=== PATIENT | male | born 1985 | race African-American/Black ===

== ENCOUNTER 2019-08-29 14:44 | Emergency (ER) | payer SELFPAY ==
[2019-08-29 14:59] VITALS: BP 121/70; PULSE 102; RESP 20; TEMP 37.6; O2SAT 100
--- NOTE | 2019-08-29 15:17 | ED.GENADULT ---
HPI - General Adult General Chief complaint: Upper Respiratory Infection Stated complaint: fever weak ache Time Seen by Provider: 08/29/19 15:17 Source: patient and RN notes reviewed History of Present Illness HPI narrative: Patient is a 34-year-old male that presents the urgent care with complaints of fever, fatigue, body aches. Patient states that he is recently been treated for an abscess in the groin region. Patient was originally placed on clindamycin and then Bactrim. Patient states has been taking the medication as prescribed. States that within the last 24 hours he developed the above symptoms. Patient has not taken anything for his symptoms with the exception of a couple doses of TheraFlu . No other acute complaints. No acute distress noted. Patient had a plan of care. Related Data Home Medications Medication Instructions Recorded Confirmed albuterol sulfate 2 puff INHALATION QID PRN 08/29/19 08/29/19 Allergies Allergy/AdvReac Type Severity Reaction Status Date / Time Penicillins Allergy Severe Seizure Verified 08/29/19 15:23 Review of Systems Review of Systems: Narrative: CONSTITUTIONAL: Reports a fever, chills, sweats EYES: Denies visual changes, redness, or discharge. ENT: Reports of congestion CARDIOVASCULAR: Denies chest pain, palpitations, or edema. RESPIRATORY: Denies cough or dyspnea. GASTROINTESTINAL: Denies abdominal pain, nausea, vomiting, or diarrhea. GENITOURINARY: Denies dysuria or hematuria. SKIN: Denies rash or itching. MUSCULOSKELETAL: Denies back pain, joint pain; reports of body aches NEUROLOGIC: Denies headache, numbness, or weakness. All other systems reviewed are negative, except as documented in HPI. [facility] Past Medical History Medical History (Updated 08/29/19 @ 15:34 by TAY Sims) COPD (chronic obstructive pulmonary disease) Cyst Pleurisy Surgical History Surgical History (Updated 07/28/19 @ 13:56 by Thomas Doss) No significant past surgical history Social History Social History (Updated 07/28/19 @ 13:56 by Thomas Doss) Smoking status: Current some day smoker Tobacco type: cigars Gender identity (if verbalized by the patient): Male Comments At the time of my signature, I reviewed and agree with the nursing past medical, surgical, social, and family history. There is no relevant family history pertinent to the patient complaint. Exam Narrative: Exam Narrative: GENERAL: This is a well-nourished, well-developed patient, appears anxious HEAD: normocephalic, atraumatic. EYES: PERRL. Sclera clear/white. Vision is grossly intact. EARS: External ears normal, auditory canals clear and without drainage, TMs normal without perforation. Hearing grossly intact. NOSE: External nose normal with no obvious nasal discharge, nares without redness, clear rhinorrhea. THROAT: Mucous membranes moist, posterior pharynx clear. Moderate postnasal drainage NECK: Neck supple, non-tender without lymphadenopathy, masses or thyromegaly. CARDIOVASCULAR: Regular rate and rhythm without murmurs, gallops, or rubs. RESPIRATORY: Clear to auscultation. Breath sounds equal bilaterally. No wheezes, rales, or rhonchi. SKIN: warm, intact with no suspicious lesions or rash, good texture and turgor. NEURO: awake, alert, and oriented to person, place and time. There were no obvious focal neurologic abnormalities. EXTREMITIES: No clubbing, cyanosis, or edema. Course Vital Signs Vital signs: Vital Signs Temperature 99.6 F 08/29/19 14:59 Pulse Rate 102 H 08/29/19 14:59 Respiratory Rate 08/29/19 14:59 Blood Pressure 121/70 08/29/19 14:59 Pulse Oximetry 100 08/29/19 14:59 Temperature 99.6 F 08/29/19 14:59 Pulse Rate 102 H 08/29/19 14:59 Respiratory Rate 08/29/19 14:59 Blood Pressure 121/70 08/29/19 14:59 Pulse Oximetry 100 08/29/19 14:59 Reviewed Medical Decision Making MDM Narrative Medical decision making narrative: Reviewed lab r
== END 2019-08-29 15:40 | disposition home or self-care (01) ==
PROVIDERS: Emergency Provider Nurse Practitioner Family
DX: J10.1 Influenza due to other identified influenza virus with other respiratory manifestations (principal); J44.9 Chronic obstructive pulmonary disease, unspecified; F17.290 Nicotine dependence, other tobacco product, uncomplicated
CPT/HCPCS: 87804; 99213; G0463

== ENCOUNTER 2020-03-04 11:21 | Emergency (ER) | payer OTHER, SELFPAY ==
--- NOTE | ~2020-03-04 | XR_ITS ---
XR chest 2V DATE: 03/04/2020 12:30 INDICATION: Chest tightness for 2 weeks. Chest pain with inspiration. Numbness of left arm and leg. TECHNIQUE: PA and lateral views COMPARISON: 10/30/2018 PA and lateral chest FINDINGS: Heart size is normal. No hilar or mediastinal enlargement. Bilateral hyperinflation. No pulmonary infiltrate or consolidation, pleural effusion or pulmonary vas cular congestion or pneumothorax. IMPRESSION: Bilateral hyperinflation; no active cardiopulmonary disease Reviewed, dictated and finalized at location [facility].
--- NOTE | ~2020-03-04 | US_ITS ---
US right upper quadrant DATE: 03/04/2020 13:06 INDICATION: Right upper quadrant abdominal pain TECHNIQUE: Real-time imaging and Doppler analysis COMPARISON: None FINDINGS: There is an approximately 9 mm mobile gallstone with shadowing. No gallbladder wall thicke reji or abnormal pericholecystic fluid collection. No hepatic or pancreatic space occupying mass les ion is detected. Normal hepatopedal portal venous flow direction. IMPRESSION: Cholelithiasis Reviewed, dictated and finalized at [facility]. Reviewed, dictated and finalized at location [facility]. IMPRESSION: Cholelithiasis
[2020-03-04 11:23] VITALS: BP 130/63; PULSE 60; RESP 16; TEMP 36.7; O2SAT 100
--- NOTE | 2020-03-04 11:29 | ECG_ITS ---
Measurements Intervals [place] Rate: 56 P: 55 DC: 131 QRS: 82 QRSD: 91 T: 64 QT: 388 QTc: 376 Interpretive Statements SINUS BRADYCARDIA ST ELEVATION IN DIFFUSE LEADS- PROBABLY EARLY REPOLARIZATION BORDERLINE ECG Electronically Signed On 03-04-2020 11:41:00 CDT by Manuel Oscar D.O.
[2020-03-04 12:01] LABS: Basophils Percent Auto 0.8 % (0.2-1.2); Eosinophils Absolute Auto 0.1 K/mm3 (0-0.3); Eosinophils Percent Auto 1.2 % (0-4.4); Hematocrit 41.6 % (42.0-52.0); Hemoglobin 13.1 g/dL (14.0-18.0); Immature Granulocyte Absolute 0.02 K/mm3 (0.00-0.031); Immature Granulocyte Percent A 0.4 % (0-0.5); Lymphocytes Absolute Auto 1.65 K/mm3 (0.9-3.2); Lymphocytes Percent Auto 32.9 % (18.3-44.2); Mean Corpuscular HGB Conc 31.5 g/dl (32-36); Mean Corpuscular Hemoglobin 23.5 pg (26-34); Mean Corpuscular Volume 74.7 fl (80-100); Mean Platelet Volume 9.8 fl (7.4-10.4); Monocytes Absolute Auto 0.5 K/mm3 (0.1-0.6); Neutrophils Absolute Auto 2.7 K/mm3 (1.3-6.7); Neutrophils Percent Auto 54.7 % (45.5-73.1); Platelet Count Result 229 k/mm3 (150-375); Red Blood Count 5.57 M/mm3 (4.6-6.20); Red Cell Distribution Width 13.5 % (11.5-14.5)
[2020-03-04 12:09] LABS: Prothrombin Time 13.1 Seconds (11.1-14.7)
[2020-03-04 12:10] LABS: Partial Thromboplastin Time 29.4 SECONDS (22.3-36.8)
[2020-03-04 12:16] LABS: Anion Gap 9 mmol/L (8-16); Blood Urea Nitrogen 15 mg/dL (9-20); Calcium 9.3 mg/dL (8.4-10.2); Carbon Dioxide 25 mmol/L (22-30); Chloride 105 mmol/L (98-107); Estimated CRCL calculation 103 ml/min; Estimated Glomerular Filt Rate > 60; Glucose 91 mg/dL (75-110); Potassium 3.5 mmol/L (3.4-5.0); Sodium 139 mmol/L (137-145)
[2020-03-04 12:28] LABS: Troponin I < 0.012 ng/mL (0.000-0.034)
[2020-03-04 13:01] LABS: Alanine Aminotransferase 16 U/L (4-50); Albumin Level 4.6 g/dL (3.5-5.1); Alkaline Phosphatase 55 U/L (38-126); Aspartate Amino Transferase 26 U/L (17-59); Bilirubin,Total 0.8 mg/dL (0.2-1.3); Lipase 56 U/L (23-300)
[2020-03-04 13:14] LABS: D Dimer 0.27 ug/mL (<0.48)
--- NOTE | 2020-03-04 13:17 | ED.GENADULT ---
HPI - General Adult General Chief complaint: Chest Pain Stated complaint: Chest Tightness Time Seen by Provider: 03/04/20 12:04 History of Present Illness HPI narrative: Patient is a 34-year-old male who presents ER with right-sided chest pain. Ongoing for 2 to 3 weeks. Reports he has the pain every 10 minutes since over the lowest rib of the right anterior chest wall. No known trauma. No cough or fevers or chills. He has no exertional dyspnea or wheezing. Reports he has been seen at another hospital without any diagnosis. Cannot give detailed information of the work-up he received and often. No modification with eating or drinking. Reports mild discomfort in his right upper abdomen. Reports that if he takes ibuprofen the pain goes away only temporarily. No lower extremity swelling or long distance travel. Related Data Home Medications Medication Instructions Recorded Confirmed albuterol sulfate 2 puff INHALATION QID PRN 08/29/19 08/29/19 Allergies Allergy/AdvReac Type Severity Reaction Status Date / Time Penicillins Allergy Severe Seizure Verified 08/29/19 15:23 Review of Systems Review of Systems: All systems reviewed & are unremarkable except as noted in HPI and below Constitutional: Constitutional: Denies chills, Denies fever(s) and Denies weakness ENT: Denies nasal congestion and Denies sore throat Cardiovascular: Cardiovascular: Reports chest pain, Denies rapid heart rate and Denies slow heart rate Respiratory: Respiratory: Denies cough, Reports dyspnea (reports can only inhale 50% at times.) and Reports wheezing Gastrointestinal: Gastrointestinal: Reports abdominal pain, Denies constipation, Denies diarrhea, Denies nausea and Denies vomiting Neurologic: Denies focal weakness and Denies numbness PMFSH Past Medical History Medical History (Updated 03/04/20 @ 13:43 by Rodney Angela MD) Cyst Pleurisy Surgical History Surgical History (Updated 07/28/19 @ 13:56 by Thomas Doss) No significant past surgical history Social History Social History (Updated 07/28/19 @ 13:56 by Thomas Doss) Smoking status: Current some day smoker Tobacco type: cigars Gender identity (if verbalized by the patient): Male Exam Narrative: Exam Narrative: GENERAL: Well-appearing, well-nourished, and in no acute distress. HEAD: Normocephalic, atraumatic. CHEST: Clear to auscultation. No respiratory distress. Tender palpation over the lowest rib of the right anterior chest wall mid clavicular line. HEART: Regular rate and rhythm. Normal peripheral pulses. ABDOMEN: Soft, mild tenderness palpation in the right upper quadrant increased pain with deep breath, nondistended. EXTREMITIES: Normal range of motion. No edema. SKIN: Warm, dry, no rash. NEURO: Alert and oriented x3. Course Course Emergency Course: Patient resting comfortably. Educated on results and follow-up plan. Discussed low-fat diet. Patient verbalized understanding. Discharge home. Vital Signs Vital signs: Vital Signs Temperature 98.1 F 03/04/20 11:23 Pulse Rate 60 03/04/20 11:23 Respiratory Rate 16 03/04/20 11:23 Blood Pressure 130/63 03/04/20 11:23 Pulse Oximetry 100 03/04/20 11:23 Temperature 98.1 F 03/04/20 11:23 Pulse Rate 60 03/04/20 11:23 Respiratory Rate 16 03/04/20 11:23 Blood Pressure 130/63 03/04/20 11:23 Pulse Oximetry 100 03/04/20 11:23 Medical Decision Making Vital Signs Vital Signs: Vital Signs Temperature 98.1 F 03/04/20 11:23 Pulse Rate 60 03/04/20 11:23 Respiratory Rate 16 03/04/20 11:23 Blood Pressure 130/63 03/04/20 11:23 Pulse Oximetry 100 03/04/20 11:23 Temperature 98.1 F 03/04/20 11:23 Pulse Rate 60 03/04/20 11:23 Respiratory Rate 16 03/04/20 11:23 Blood Pressure 130/63 03/04/20 11:23 Pulse Oximetry 100 03/04/20 11:23 Lab Data Result diagrams: 03/04/20 11:52 03/04/20 11:52 Labs: Lab Res
[2020-03-04] MEDS: ASPIRIN 81 MG CHEWABLE TABLET 324 MG PO (13:23)
[2020-03-04 14:03] VITALS: BP 132/88; PULSE 70; RESP 18; O2SAT 98
== END 2020-03-04 14:04 | disposition home or self-care (01) ==
PROVIDERS: Emergency Medicine; Emergency Provider Emergency Medicine
DX: K80.20 Calculus of gallbladder without cholecystitis without obstruction (principal); F17.290 Nicotine dependence, other tobacco product, uncomplicated; R00.1 Bradycardia, unspecified
CPT/HCPCS: 36415; 71046; 76705; 80048; 80076; 83690; 84484; 85025; 85380; 85610; 85730; 93005; 99284; A9270

== ENCOUNTER 2020-03-09 09:41 | Outpatient (CLI) | payer OTHER, SELFPAY ==
[2020-03-09 18:39] LABS: SARS-CoV-2 RNA PCR Negative
== END 2020-03-09 09:42 | disposition home or self-care (01) ==
LOC: ANHCOVIDDT 09:41
PROVIDERS: Visit Provider Surgery
DX: Z01.812 Encounter for preprocedural laboratory examination (principal); Z20.828 Contact with and (suspected) exposure to other viral communicable diseases
CPT/HCPCS: 87635; C9803; U0003

== ENCOUNTER 2020-03-11 00:48 | Day surgery (SDC) | payer OTHER, SELFPAY ==
[2020-03-09 11:45] VITALS: BMI 18.3
[2020-03-11] VITALS (10 sets, daily range): BP systolic 108–132; BP diastolic 58–80; PULSE 59–78; RESP 13–20; TEMP 36.2–36.7; O2SAT 100
[2020-03-11] MEDS: LACTATED RINGERS 1,000 ML 30 ML IV CONT ×2 (08:41→11:20)
[2020-03-11] MEDS: ACETAMINOPHEN 500 MG TABLET 1000 MG PO (08:50)
[2020-03-11] MEDS: KETOROLAC 15 MG/ML VIAL (*BKC) IV PUSH (08:50)
[2020-03-11 09:04] LABS: Alanine Aminotransferase 18 U/L (4-50); Albumin Level 4.7 g/dL (3.5-5.1); Alkaline Phosphatase 51 U/L (38-126); Amylase 81 U/L (30-110); Aspartate Amino Transferase 25 U/L (17-59); Lipase 65 U/L (23-300)
--- NOTE | 2020-03-11 09:29 | WPDHPUPDATE1 ---
History and Physical Update Update Date/Time: 03/11/20 09:29 History and Physical has been reviewed, including an updated exam of the patient. There are NO changes in the patient's condition. Risks, benefits, and alternatives have been discussed and questions answered. Patient agrees to proceed with procedure.
--- NOTE | 2020-03-11 09:31 | WPDANESEPPF ---
Anes - Initial Pre Proc Eval Procedure: Operation Date: 03/11/20 10:00 Proposed Procedures p Laparoscopic Cholecystectomy, Possible Intraoperative Cholangiogram, Possible Open - Jona Ray MD Date/Time: 03/11/20 09:31 Surgeon: Jona Ray MD Pre Op Diagnosis: Chronic Cholecystitis Patient Data Age: 34 Gender: M Height: 6 ft 2 in Weight: 63.3 kg Last Vital Signs Temp 98.0 F 03/11/20 08:12 Pulse 60 03/11/20 08:12 Resp 20 03/11/20 08:12 BP 116/73 03/11/20 08:12 Pulse Ox 100 03/11/20 08:12 Allergies Allergy/AdvReac Type Severity Reaction Status Date / Time Penicillins Allergy Severe Seizure Verified 03/11/20 08:18 Home Medications Medication Instructions Recorded Confirmed Type albuterol sulfate 2 puff INHALATION QID PRN 08/29/19 03/11/20 History hydrocodone-acetaminophen 1 tablet PO Q6H PRN #12 tablet 03/04/20 03/11/20 Rx ondansetron 4 mg PO Q6H PRN #10 tablet 03/04/20 03/11/20 Rx ibuprofen 600 mg PO Q6H PRN 03/09/20 03/11/20 History multivitamin 1 tablet PO DAILY 03/09/20 03/11/20 History Laboratory Tests 03/11/20 08:40 Total Bilirubin 1.0 mg/dL mg/dL (0.2-1.3) Direct Bilirubin 0.0 mg/dL mg/dL (0-0.3) AST 25 U/L U/L (17-59) ALT 18 U/L U/L (4-50) Alkaline Phosphatase 51 U/L U/L (38-126) Total Protein 8.0 g/dL g/dL (6.3-8.2) Albumin 4.7 g/dL g/dL (3.5-5.1) Amylase 81 U/L U/L (30-110) Lipase 65 U/L U/L (23-300) Patient hx anesthesia problems: none Family hx anesthesia problems: none PMFSH Social History Social History Years smoked: 8 Smoking status: Former smoker Tobacco type: cigarettes and cigars Additional smoking assessment comments: QUIT 3 MONTHS AGO Alcohol intake: never Gender identity (if verbalized by the patient): Male Spiritual care concerns: No Anes - Eval Final PreProcedure Day of Procedure 03/11/20 09:31 Patient weight: normal Heart: regular rate and rhythm Lungs: clear to auscultation Airway: Mallampati scale class 1 Neurological: alert and oriented Last oral intake: >/= 8 hours ASA classification: II Emergent: no Anesthetic plan: proceed Anesthesia type and monitoring: general ETT and standard monitoring Informed Consent: The patient's anesthetic plan and its attendant risks and benefits were discussed with the patient/family/POA. Questions were solicited and answers provided to the satisfaction of the patient/family/POA.
[2020-03-11] MEDS: CLINDAMYCIN 900 MG/NS 50 ML 900 MG/50 ML PIGGYBACK 50 MG IVPB (09:56)
[2020-03-11] MEDS: BUPIVACAINE/EPINEPHRINE 0.5% 30 ML VIAL INFILTRATE (10:44)
--- NOTE | 2020-03-11 11:13 | PM.PROC ---
Procedure Note - Detailed Date of procedure: 03/11/20 Pre-op diagnosis: Chronic Cholecystitis Chronic Cholecystitis with Cholelithiasis Post-op diagnosis: same Procedure performed: Laparoscopic Cholecystectomy Description of procedure: Patient was seen preoperatively in the holding area and risks, benefits and alternatives confirmed. Patient was taken to the operating room and general anesthesia was induced. A time out was then preformed with the surgery team confirming patient and site of surgery. The abdomen was prepped and draped in the usual sterile fashion. Incision was made just below the umbilicus with an 11 blade knife. I placed 2 stay sutures of O- Vicryl on either side of the mid-line fascia beneath the umbilicus and was then able to slide in the Pak cannula through the fascial defect into the peritoneum. First under low flow and then under high flow the abdomen was insufflated with carbon dioxide never exceeding a pressure of 14. Three 5 mm trocars were then introduced under direct vision. The following trocars were introduced under direct vision: a 5 mm in the epigastrium and two 5 mm trocars along the right costal margin laterally in the subcostal area. There were not significant adhesions to the underside of the gallbladder.I looked for his appendix but it was talked retrocecal and I could not see it. Patient did not have inguinal hernias on either side. I then carefully used the L-shaped cautery and the [place] dissector to dissect out the triangle of [place]. I then was able to dissect out both the cystic duct and cystic artery and identify a window of safety. The gall bladder was grasped and the cystic duct and artery were dissected free and clipped with an 5 mm endo-clip lead instructor/flight attendant. The cystic duct and artery were clipped with use of 2 clips on the patient's side 1 on the gallbladder side utilizing a 5 mm endoclip-lead instructor/flight attendant. The cystic duct was then transected. The cystic artery was also transected at this point. The gall bladder was removed using electrocautery and then removed from the abdomen using a large 10 mm grasper via the umbilical incision. The trocars were removed visualizing hemostasis and the remaining gas evacuated. The large trocar site at the umbilicus was closed with use of the 2 stay sutures of 0 Vicryl mentioned above and also a figure of 8 O-Vicryl suture. The 2 stay sutures mentioned above on either side of the fascia were also tied together to help approximate this midline fascia. Further local anesthetic was placed into each incision for postop pain control. The skin incisions were closed with subcuticular suture of 4-0 Monocryl. Surgical glue then was applied to all the incisions. Patient tolerated the procedure well was taken to the recovery room in good condition. Anesthesia: GETA Surgeon: Jona Ray MD [employer] Operator: Miriam MAZA, OR assistant portfolio manager Estimated blood loss (mL): 10 Drains: No Packing: No Pathology: yes (Gallbladder) Complications: No immediate complications Condition: stable Disposition: PACU Findings: Unremarkable chronic cholecystitis with fairly normal looking gallbladder.
[2020-03-11] MEDS: ONDANSETRON INJ 4 MG/2 ML VIAL IV PUSH (12:20)
[2020-03-11] MEDS: diphenhydrAMINE HCl INJ 50 MG/ML VIAL 12.5 MG IV PUSH (12:50)
== END 2020-03-11 14:07 | disposition home or self-care (01) ==
PROVIDERS: Visit Provider Surgery
PROC: 0FT44ZZ Resection of Gallbladder, Percutaneous Endoscopic Approach (ICD-10-PCS; CPT 47562; principal; 2020-03-11 10:00)
DX: K80.10 Calculus of gallbladder with chronic cholecystitis without obstruction (principal)
CPT/HCPCS: 47562; 36415; 80076; 82150; 83690; 88304; A9270; J1100; J1170; J1200; J1885; J2250; J2405; J2704; J2710; J3010; J7030; J7120

== ENCOUNTER 2020-08-09 14:08 | Emergency (ER) | payer OTHER, SELFPAY ==
--- NOTE | ~2020-08-09 | XR_ITS ---
EXAMINATION: XR chest 2V DATE: 08/09/2020 15:28 INDICATION: Right-sided chest pain and weakness TECHNIQUE: PA and lateral views of the chest are obtained. COMPARISON: 03/04/2020 FINDINGS: The lungs are free of acute opacities. There is no pleural effusion or pneumothorax. The ca rdiomediastinal silhouette is normal. The visualized bones and soft tissues are unremarkable. Surgica l clips in the right upper quadrant are likely from prior cholecystectomy. IMPRESSION: 1. No acute cardiopulmonary abnormality. Reviewed, dictated and finalized at location A. GER QUALITY
[2020-08-09 14:10] VITALS: BP 119/68; PULSE 68; RESP 20; TEMP 36.4; O2SAT 100
--- NOTE | 2020-08-09 14:11 | ECG_ITS ---
Measurements Intervals [place] Rate: 67 P: 72 VT: 134 QRS: 76 QRSD: 82 T: 52 QT: 368 QTc: 389 Interpretive Statements SINUS RHYTHM ST ELEVATION IN DIFFUSE LEADS- PROBABLY EARLY REPOLARIZATION BASELINE ARTIFACT- I, AVL BORDERLINE ECG Electronically Signed On 08-09-2020 16:42:38 STEEL FABRICATING SUPERVISOR by Manuel Oscar D.O.
[2020-08-09 14:23] LABS: Basophils Percent Auto 0.7 % (0.2-1.2); Eosinophils Absolute Auto 0.1 K/mm3 (0-0.3); Eosinophils Percent Auto 1.2 % (0-4.4); Hematocrit 44.4 % (42.0-52.0); Hemoglobin 13.7 g/dL (14.0-18.0); Immature Granulocyte Absolute 0.01 K/mm3 (0.00-0.031); Immature Granulocyte Percent A 0.2 % (0-0.5); Lymphocytes Absolute Auto 1.78 K/mm3 (0.9-3.2); Lymphocytes Percent Auto 29.9 % (18.3-44.2); Mean Corpuscular HGB Conc 30.9 g/dl (32-36); Mean Corpuscular Hemoglobin 23.2 pg (26-34); Mean Corpuscular Volume 75.3 fl (80-100); Mean Platelet Volume 8.9 fl (7.4-10.4); Monocytes Absolute Auto 0.5 K/mm3 (0.1-0.6); Monocytes Percent Auto 8.9 % (2.6-8.5); Neutrophils Absolute Auto 3.5 K/mm3 (1.3-6.7); Neutrophils Percent Auto 59.1 % (45.5-73.1); Platelet Count Result 213 k/mm3 (150-375); Red Cell Distribution Width 14.6 % (11.5-14.5)
--- NOTE | 2020-08-09 14:28 | PC.NURSE ---
Pt unable to urinate at this time.
[2020-08-09 14:35] LABS: Alanine Aminotransferase 16 U/L (4-50); Albumin Level 4.7 g/dL (3.5-5.1); Alkaline Phosphatase 67 U/L (38-126); Anion Gap 5 mmol/L (8-16); Aspartate Amino Transferase 26 U/L (17-59); Bilirubin,Total 0.5 mg/dL (0.2-1.3); Blood Urea Nitrogen 15 mg/dL (9-20); Calcium 9.7 mg/dL (8.4-10.2); Carbon Dioxide 32 mmol/L (22-30); Chloride 103 mmol/L (98-107); Estimated CRCL calculation 92 ml/min; Estimated Glomerular Filt Rate > 60; Glucose 85 mg/dL (75-110); Potassium 4.1 mmol/L (3.4-5.0); Sodium 140 mmol/L (137-145)
[2020-08-09 14:53] LABS: Add Urine Microscopic? NO; Appearance Urine Clear (Clear); Bilirubin Urine Negative (Negative); Blood Urine Negative (Negative); Color Urine Colorless (Yellow); Glucose Urine UA Negative (Negative); Ketones Urine Negative (Negative); Leukocyte Esterase Ur Negative LEU/UL (Negative); Nitrate Urine Negative (Negative); Protein Urine Negative (Negative); RBC Urine 0-2 /hpf (0-2); Specific Grav Ur 1.006 (1.001-1.035); Urobilinogen Urine Negative mg/dL (<2.0); WBC Urine 0-3 /hpf
--- NOTE | 2020-08-09 15:06 | ED.GENADULT ---
HPI - General Adult General Chief complaint: Weakness Stated complaint: weak, nausea, chest tightness Time Seen by Provider: 08/09/20 14:28 Source: patient History of Present Illness HPI narrative: Patient is 35 y/o male complaining of right lower chest pain starting approximately 3 hours ago. He describes his pain as a deep burning , and rates it as 7/10. There is no pain radiation. There is no alleviating or exacerbating factor. He has no cough or SOB. Related Data Home Medications Medication Instructions Recorded Confirmed albuterol sulfate 2 puff INHALATION QID PRN 08/29/19 03/31/20 ibuprofen 600 mg PO Q6H PRN 03/09/20 03/31/20 multivitamin 1 tablet PO DAILY 03/09/20 03/31/20 Allergies Allergy/AdvReac Type Severity Reaction Status Date / Time Penicillins Allergy Severe Seizure Verified 08/09/20 14:27 Review of Systems Constitutional: Constitutional: Denies chills, Denies fever(s), Denies headache(s) and Denies weakness Eyes: Eyes: Denies blurry vision ENT: Denies headache(s) and Denies neck pain Cardiovascular: Cardiovascular: Reports chest pain and Denies dyspnea Respiratory: Respiratory: Denies cough and Denies dyspnea Gastrointestinal: Gastrointestinal: Denies abdominal pain, Denies diarrhea, Denies nausea and Denies vomiting Genitourinary: Genitourinary: Denies hematuria and Denies dysuria Musculoskeletal: Musculoskeletal: Denies back pain and Denies neck pain Neurologic: Denies headache(s) and Denies weakness PMFSH Past Medical History Medical History (Updated 08/09/20 @ 18:26 by Ramya Chavarria MD) Asthma Cyst Pleurisy Seizures Skull fracture Surgical History Surgical History Hx laparoscopic cholecystectomy No significant past surgical history Social History Social History Years smoked: 8 Smoking status: Former smoker Tobacco type: cigarettes and cigars Additional smoking assessment comments: QUIT 3 MONTHS AGO Alcohol intake: never Gender identity (if verbalized by the patient): Male Spiritual care concerns: No Exam Const: General: no acute distress and well developed Orientation/consciousness: oriented to person, oriented to place, oriented to time and patient oriented x3 HENMT: Head: normocephalic Ears: external ears normal General nose exam: Normal external nose present Eyes: General: appearance normal, both eyes and all related structures Conjunctivae: conjunctivae normal Neck: Neck: normal visual inspection and full ROM Chest: Chest palpation & inspection: normal inspection of the chest and no tenderness Resp: Effort & Inspection: normal respiratory effort Auscultation: clear to auscultation bilaterally Cardio: Rate: regular rate Rhythm: regular rhythm GI: GI Palp: No abdominal tenderness and Yes Soft to palpation Skin: General skin exam: normal color and turgor normal Neuro: General: oriented to person, oriented to place, oriented to time and patient oriented x3 Cognition (Neuro): normal cognition Extrem: General: normal to inspection, full ROM and no pedal edema Psych: Appearance: grossly normal Mental Status: mental status grossly normal Affect: normal affect Course Vital Signs Vital signs: Vital Signs Temperature 36.4 C 08/09/20 14:10 Pulse Rate 68 08/09/20 14:10 Respiratory Rate 08/09/20 14:10 Blood Pressure 119/68 08/09/20 14:10 Pulse Oximetry 100 08/09/20 14:10 Temperature 36.4 C 08/09/20 14:10 Pulse Rate 73 08/09/20 18:33 Respiratory Rate 15 08/09/20 18:33 Blood Pressure 110/63 08/09/20 18:33 Pulse Oximetry 100 08/09/20 18:33 Medical Decision Making Vital Signs Vital Signs: Vital Signs Temperature 36.4 C 08/09/20 14:10 Pulse Rate 68 08/09/20 14:10 Respiratory Rate 20 08/09/20 14:10 Blood Pressure 119/68 08/09/20 14:10 Pulse Oximetry 100 08/09/20 14:10
--- NOTE | 2020-08-09 15:33 | PC.NURSE ---
PT TO XRAY VIA W/C.
[2020-08-09 16:09] VITALS: BP 122/66; PULSE 57; PULSE 61; RESP 14; O2SAT 100
--- NOTE | 2020-08-09 16:54 | PC.NURSE ---
1654 - Patient ambulatory to restroom with steady gait with no complaints of dizziness.
[2020-08-09] MEDS: KETOROLAC 15 MG/ML VIAL (*BKC) IV PUSH (17:42)
[2020-08-09 18:19] LABS: D Dimer 0.27 ug/mL (<0.48)
[2020-08-09 18:33] VITALS: BP 110/63; PULSE 73; RESP 15; O2SAT 100
== END 2020-08-09 18:35 | disposition home or self-care (01) ==
PROVIDERS: Emergency Provider Emergency Medicine
DX: R07.9 Chest pain, unspecified (principal); J45.909 Unspecified asthma, uncomplicated; Z87.891 Personal history of nicotine dependence; R94.31 Abnormal electrocardiogram [ECG] [EKG]
CPT/HCPCS: 36415; 71046; 80053; 81003; 85025; 85380; 93005; 96374; 99284; J1885

== ENCOUNTER → 2024-06-08 12:44 | Outpatient (CLI) | payer OTHER, SELFPAY ==
--- NOTE | ~2024-06-08 | XR_ITS ---
XR chest 2V Ordering provider: Mala Diana, ROSETTE History: 39 years Male with . SUBACUTE COUGH,PERSISTENT COUGH AFTER ABX . Comparison: None. FINDINGS: MEDIASTINUM: The cardiac silhouette is not enlarged. LUNGS: No infiltrates, effusions or pneumothorax. OTHER: No free air under the diaphragm. IMPRESSION: No acute cardiopulmonary pathology. Reviewed, dictated and finalized at location A. [employer] PSYCHOLOGIST [employer]
== END ==
LOC: EXPCRAD 12:50
PROVIDERS: PCP Physician Assistant; Visit Provider Physician Assistant
DX: R05.2 Subacute cough (principal)
CPT/HCPCS: 71046